=== PATIENT | male | born 1965 | race American Indian/Alaskan Native ===

== ENCOUNTER 2019-05-12 12:34 | Outpatient (CLI) | payer MEDICARE ==
--- NOTE | 2019-05-12 13:31 | XRay Report ---
CERVICAL SPINE, 4 VIEWS INDICATION: CERVICALGIA. COMPARISON: None. IMPRESSION: Normal alignment. There is borderline bone mineralization. Mild to moderate discogenic D KYREE is identified at C4-5, C5-6 and C6-7. The remaining disc levels and facet joints are unremarkable. No acute osseous or soft tissue abnormality. Signer Name: Isaiah Reese Jr, MD Signed: 05/12/2019 1:26 PM Workstation Name: [id number]
== END 2019-05-12 12:35 | disposition home or self-care (01) ==
LOC: XRAY 12:34
PROVIDERS: ATTEND Urology
DX: M47.892 Other spondylosis, cervical region (principal)
CPT/HCPCS: 72040

== ENCOUNTER 2019-06-23 12:32 | Outpatient (CLI) | payer MEDICARE ==
[2019-06-23 13:16] LABS: Basophils % (Auto) 0.8 % (0.0-1.8); Eosinophils % (Auto) 1.2 % (0.0-4.3); Hematocrit 47.6 % (35.5-45.6); Hemoglobin 16.7 gm/dl (11.8-15.2); Lymphocytes % (Auto) 26.3 % (13.4-35.0); Mean Corpuscular HGB Conc 35 % (32-34); Mean Corpuscular Volume 87 fl (84-94); Monocytes % (Auto) 8.7 % (0.0-7.3); Platelet Count 172 K/mm3 (140-440); Red Blood Count 5.45 M/mm3 (3.65-5.03); Red Cell Distribution Width 13.4 % (13.2-15.2)
[2019-06-23 13:17] LABS: Basophils # (Auto) 0.1 K/mm3 (0.0-0.1); Eosinophils # (Auto) 0.1 K/mm3 (0.0-0.4); Lymphocytes # (Auto) 1.8 K/mm3 (1.2-5.4); Monocytes # (Auto) 0.6 K/mm3 (0.0-0.8)
[2019-06-23 13:28] LABS: Alanine Aminotransferase 43 units/L (7-56); Albumin 4.7 g/dL (3.9-5); BUN/Creatinine Ratio 27; Blood Urea Nitrogen 19 mg/dL (9-20); Calcium 9.5 mg/dL (8.4-10.2); Chol/HDL Ratio 10.65 %; HDL Cholesterol 26 mg/dL (40-59); Hemolysis Index 11; LDL Cholesterol,Direct 75 mg/dL (50-130)
== END 2019-06-23 12:33 | disposition home or self-care (01) ==
LOC: LAB 12:32
PROVIDERS: ATTEND Internal Medicine
DX: Z13.21 Encounter for screening for nutritional disorder (principal); E78.5 Hyperlipidemia, unspecified; I10 Essential (primary) hypertension; E11.65 Type 2 diabetes mellitus with hyperglycemia
CPT/HCPCS: 36415; 80053; 80061; 82306; 82607; 83036; 84443; 85025

== ENCOUNTER 2019-07-05 16:08 | Emergency (ER) | payer MEDICARE ==
--- NOTE | 2019-07-05 17:22 | Emergency Department Report ---
Blank Doc - Documentation Documentation: 54-year-old male that presents with let sided rib pain s/p ground level trip and fall. This initial assessment/diagnostic orders/clinical plan/treatment(s) is/are subject to change based on patient's health status, clinical progression and re- assessment by fellow clinical providers in the ED. Further treatment and workup at subsequent clinical providers discretion. Patient/guardians urged not to elope from the ED as their condition may be serious if not clinically assessed and managed. Initial orders include: 1- Patient sent to [facility] for further evaluation and treatment 2- xrays
--- NOTE | 2019-07-05 18:03 | XRay Report ---
LEFT RIBS 5 VIEWS INDICATION / CLINICAL INFORMATION: left rib pain s/p fall. COMPARISON: None available. FINDINGS: RIBS: There is a nondisplaced fracture of the left anterolateral sixth rib. There are no other rib fr actures. LUNGS: Mild subsegmental atelectasis in the left lower lobe. No pneumothorax. Signer Name: Ag Ravi MD Signed: 07/05/2019 5:58 PM Workstation Name: [id number]
[2019-07-05] MEDS ORDERED: HYDROcodone/ACETAMINOPHEN 5-325 MG TAB PO ONE (20:37)
--- NOTE | 2019-07-05 21:20 | Emergency Department Report ---
ED Fall HPI - General Chief Complaint: Fall Stated Complaint: LFT SIDE RIB FALL/PAIN Time Seen by Provider: 07/05/19 17:21 Source: patient Mode of arrival: Ambulatory - History of Present Illness Initial Comments: Mr. Jackson is a [age]-y/o aam with hx of diabetes type 2, hyperlipidemia, and htn. Patient presents today status post ground-level fall 2 days ago no LOC. Patient states he was walking across his yard and fell down a hill. There was no prodromal event, no chest pain ,no shortness of breath ,no nausea vomiting, no dizziness. Patient was immediately ambulatory after incident. Patient states to not seek treatment as he had no pain. However over the next day with left-sided rib tenderness 4/10 exacerbated by movement and deep inspiration. There is no swelling, no bruising, no hemoptysis, no shortness of breath and wheezing no stridor. There is no nausea vomiting, No dizziness, no diaphoresi. Pt is a/ox 3, ambulatory with steady gait, and nad. pt states he presented today because his told him to come to ensure no rib fracture. MD Complaint: fall Onset/Timin -: days(s) Fall From: standing When Fall Occurred: # days [employer] (2) Fall Witnessed: no Place Fall Occurred: home Loss of Consciousness: none Prolonged Down Time?: no Symptoms Prior to Fall: none Location: chest (left flank ribs ) Severity: moderate Severity scale (0 -10): 3 Quality: sharp Context: tripped/slipped Associated Symptoms: denies: headache, neck pain, numbness, weakness, shortness of breath, abdominal pain, lightheaded, vertigo, confusion - Related Data Home Medications Medication Instructions Recorded Confirmed Last Taken Atorvastatin [Lipitor] 40 mg PO QHS 12/04/13 12/04/13 12/03/13 08:00 Fenofibrate [Lipofen] 50 mg PO QDAY 12/04/13 12/04/13 12/03/13 08:00 Glimepiride [Amaryl] 2 mg PO QAM 12/04/13 12/04/13 12/03/13 08:00 Sitagliptin Phos/Metformin HCl 1 tab PO BID 12/04/13 12/04/13 12/03/13 08:00 [Janumet 50-1,000 mg] Previous Rx's Medication Instructions Recorded Last Taken Type Clindamycin [Clindamycin CAP] 300 mg PO Q6H #28 capsule 12/04/13 Unknown Rx Oxycodone HCl/Acetaminophen 1 each PO Q6HR PRN #20 tablet 12/04/13 Unknown Rx [Percocet 10-325 mg] Acetaminophen/Codeine [Tylenol 1 tab PO Q6H PRN #12 tab 07/05/19 Unknown Rx /Codeine # 3 tab] Spirometers and Accessories 1 each MC Q4H #1 each 07/05/19 Unknown Rx [Mistassist] Allergies Allergy/AdvReac Type Severity Reaction Status Date / Time No Known Allergies Allergy Verified 12/04/13 01:14 ED Review of Systems ROS: Stated complaint: LFT SIDE RIB FALL/PAIN Other details as noted in HPI Constitutional: denies: chills, fever Eyes: denies: eye pain, eye discharge, vision change ENT: denies: ear pain, throat pain Respiratory: denies: cough, orthopnea, shortness of breath, SOB with exertion, SOB at rest, wheezing Cardiovascular: chest pain (left lateral rib , flank, chest wall pain ). denies: palpitations Endocrine: no symptoms reported Gastrointestinal: as per HPI. denies: abdominal pain, nausea, vomiting, melena Genitourinary: denies: urgency, dysuria Musculoskeletal: denies: back pain, joint swelling, arthralgia, myalgia Skin: denies: rash, lesions Neurological: as per HPI. denies: headache, weakness, vertigo Psychiatric: denies: anxiety, depression Hematological/Lymphatic: denies: easy bleeding, easy bruising ED Past Medical Hx - Past Medical History Hx Hypertension: Yes Hx Diabetes: Yes - Surgical History Past Surgical History?: No - Social History Smoking Status: Never Smoker Substance Use Type: None - Medications Home Medications: Home Medications Medication Instructions Recorded Confirmed Last Taken Type Atorvastatin [Lipitor] 40 mg PO QHS 12/04/13 12/04/13 12/03/13 08:00 History Clindamycin [Clindamycin CAP] 300 mg PO Q6H #28 capsule 12/04/13 Unknown Rx Fenofibrate [Lipofen] 50 mg PO QDAY 12/04/13 12/04/13 12/03/13 08:00 History Glimepiride [Amaryl] 2 mg PO QAM 12/04/13 12/04/13 12/03/13 08:00 History Oxycodone HCl/Acetaminophen 1 each PO Q6HR PRN #20 tablet 12/04/13 Unknown Rx [Percocet 10-325 mg] Sitagliptin Phos/Metformin HCl 1 tab PO BID 12/04/13 12/04/13 12/03/13 08:00 History [Janumet 50-1,000 mg] Acetaminophen/Codeine [Tylenol 1 tab PO Q6H PRN #12 tab 07/05/19 Unknown Rx /Codeine # 3 tab] Spirometers and Accessories 1 each MC Q4H #1 each 07/05/19 Unknown Rx [Mistassist] ED Physical Exam - General Limitations: No Limitations General appearance: alert, in no apparent distress - Head Head exam: Present: atraumatic, normocephalic, normal inspection - Eye Eye exam: Present: normal appearance, PERRL, EOMI Pupils: Present: normal accommodation - ENT ENT exam: Present: normal exam, mucous membranes moist - Neck Neck exam: Present: normal inspection, full ROM. Absent: tenderness, meningismus, lymphadenopathy, thyromegaly - Expanded Neck Exam Expanded Neck exam: Absent: tenderness, midline deformity, anterior neck swelling, thyroid mass, carotid bruit, tracheal deviation - Respiratory Respiratory exam: Present: normal lung sounds bilaterally, chest wall tenderness (left lateral chest wall tenderness to deep palpation, and deep palpation, there is no crepitus, no ecchymosis no deformtiy no flail chest no bruising ). Absent: respiratory distress, wheezes, rales, rhonchi, stridor, accessory muscle use, decreased breath sounds, prolonged expiratory - Cardiovascular Cardiovascular Exam: Present: regular rate, normal rhythm, normal heart sounds - GI/Abdominal GI/Abdominal exam: Present: soft, normal bowel sounds. Absent: distended, tenderness, bruit, hernia - Rectal Rectal exam: Present: deferred - Extremities Exam Extremities exam: Present: normal inspection, normal capillary refill - Back Exam Back exam: Present: normal inspection, full ROM, vertebral tenderness. Absent: tenderness, CVA tenderness (R), CVA tenderness (L), muscle spasm, paraspinal tenderness, rash noted - Neurological Exam Neurological exam: Present: alert, oriented X3, CN II-XII intact, normal gait, reflexes normal. Absent: motor sensory deficit - Psychiatric Psychiatric exam: Present: normal affect, normal mood - Skin Skin exam: Present: warm, dry, intact, normal color. Absent: rash ED Course Vital Signs 07/05/19 07/05/19 07/05/19 17:21 21:40 21:43 Temperature 98.5 F 98.8 F Pulse Rate 109 H 104 H Respiratory 18 18 18 Rate Blood Pressure 132/91 Blood Pressure 146/85 [Right] O2 Sat by Pulse 97 100 Oximetry ED Medical Decision Making - EKG Data EKG shows normal: sinus rhythm Rate: normal - EKG Data When compared to previous EKG there are: previous EKG unavailable Interpretation: normal EKG (Ekg interp by ed attending NSR , No ST Elevated LA, no old ekg for comparison, ) - Radiology Data Radiology results: report reviewed, image reviewed Ordering Physician: SUMIT MEADOWS NP Date of Service: 07/05/19 Procedure(s): XR ribs UNI w PA chest 3+V LT Accession Number(s): [id number] cc: SUMIT MEADOWS NP Fluoro Time In Minutes: LEFT RIBS 5 VIEWS INDICATION / CLINICAL INFORMATION: left rib pain s/p fall. COMPARISON: None available. FINDINGS: RIBS: There is a nondisplaced fracture of the left anterolateral sixth rib. There are no other rib fractures. LUNGS: Mild subsegmental atelectasis in the left lower lobe. No pneumothorax. Signer Name: Ag Ravi MD Signed: 07/05/2019 5:58 PM Workstation Name: [id number] Transcribed By: LORETO Dictated By: Ag Ravi MD Electronically Authenticated By: Ag Ravi MD Signed Date/Time: 07/05/191757 DD/ 56 TD/TT: - Medical Decision Making This is a left sixth rib fracture with some chest wall tenderness. EKG is normal no ST elevated LA mildly prolong pr intervals at .229 sec, this is know and chronic condition to this patient , EKG interpreted by ED attending. Pt has pcp follow up for same with Dr. Khan. There is no hemoptysis, no cough, no shortness ,of breath no wheezing, no stridor. No prolonged expiration, no accessory muscle use. Pain was relieved by medication given in ED to 2/10 with deep inspiration at this time. Patient is ambulatory from ED to bathroom and back to room without shortness of breath. Plan tylenol #3. follow with PCP in 2-3 days. Patient given strict instructions to return to ED should symptoms worsen or shortness of breath. Patient and verbalized agreement and understanding of discharge plan patient DC'd home in stable condition at this time Critical care attestation.: If time is entered above; I have spent that time in minutes in the direct care of this critically ill patient, excluding procedure time. ED Disposition Clinical Impression: Fall Qualifiers: Encounter type: initial encounter Qualified Code(s): W19.XXXA - Unspecified fall, initial encounter Closed fracture of rib of left side Qualifiers: Encounter type: initial encounter Rib fracture type: single rib Qualified Code(s): S22.32XA - Fracture of one rib, left side, initial encounter for closed fracture Disposition: DC-01 TO HOME OR SELFCARE Is pt being admited?: No Does the pt Need Aspirin: No Condition: Stable Instructions: How to Use an Incentive Spirometer (ED), Rib Fracture (ED), Fall Prevention (ED) Additional Instructions: Incentive Spirometer from your pharmacy over the counter as discussed. Prescriptions: Spirometers and Accessories [Mistassist] 1 each MC Q4H #1 each Acetaminophen/Codeine [Tylenol /Codeine # 3 tab] 1 tab PO Q6H PRN #12 tab PRN Reason: pain Referrals: SEBASTIEN KHAN MD [Primary Care Provider] - 3-5 Days KEHINDE PULLIAM MD [Staff Physician] - 3-5 Days Forms: Work/School Release Form(ED) Time of Disposition: 21:37
[2019-07-05 21:44] VITALS: BP 146/85
== END 2019-07-05 21:45 | disposition home or self-care (01) ==
LOC: ED 16:08
DX: S22.32XA Fracture of one rib, left side, initial encounter for closed fracture (principal); E11.9 Type 2 diabetes mellitus without complications; E78.5 Hyperlipidemia, unspecified; I10 Essential (primary) hypertension; Z79.899 Other long term (current) drug therapy; W17.89XA Other fall from one level to another, initial encounter; Y93.89 Activity, other specified; Y92.89 Other specified places as the place of occurrence of the external cause; Y99.8 Other external cause status
CPT/HCPCS: 93005; 93010; 99283

== ENCOUNTER 2019-07-06 13:09 | Outpatient (CLI) | payer MEDICARE ==
--- NOTE | 2019-07-06 14:01 | XRay Report ---
LEFT ELBOW HISTORY: Pain. COMPARISON: None. TECHNIQUE: 3 views of the left elbow obtained. FINDINGS: Bones: No fracture or dislocation. Joint spaces: Osteoarthritis of the ulnohumeral joint with a small medial osteophyte. Soft tissues: No significant abnormality. No joint effusion. Additional findings: A moderate size olecranon spur and small spurs at the humeral epicondyles. IMPRESSION: 1. Osteoarthritis and enthesopathy. Signer Name: Remy Cast MD Signed: 07/06/2019 1:57 PM Workstation Name: [id number]
== END 2019-07-06 13:10 | disposition home or self-care (01) ==
LOC: XRAY 13:09
PROVIDERS: ATTEND Internal Medicine
DX: M19.022 Primary osteoarthritis, left elbow (principal); M77.9 Enthesopathy, unspecified; I10 Essential (primary) hypertension